=== PATIENT | female | born 1965 | race Caucasian/White ===

== ENCOUNTER 2017-09-15 12:33 | Emergency (ER) | payer SELFPAY ==
[~2017-09-15] VITALS: Ht 162.6 cm; Wt 55.9 kg
[2017-09-15 12:34] VITALS: BP 141/96
--- NOTE | 2017-09-15 12:41 | NUR ---
PT TRIAGED, AMBULATED TO ER LOBBY WAITING FOR ER BED. ERMD AWARE OF PATIENT STATUS.
--- NOTE | 2017-09-15 14:40 | NUR ---
PT TRIAGED, WAITING FOR ER BED. ERMD AWARE OF PATIENT STATUS.
--- NOTE | 2017-09-15 16:40 | NUR ---
PT TRIAGED,AAOx4, WAITING FOR ER BED. ERMD AWARE OF PATIENT STATUS.
--- NOTE | 2017-09-15 17:23 | NUR ---
PATIENT LEFT WITHOUT BEING SEEN BY DR. MULLER. NO FURTHER CARE PROVIDED FOR PATIENT.
== END 2017-09-15 17:22 | disposition left against medical advice (07) ==
LOC: MED 12:33
DX: M79.652 Pain in left thigh (principal); Z53.21 Procedure and treatment not carried out due to patient leaving prior to being seen by health care provider

== ENCOUNTER 2019-08-07 14:16 | Emergency (ER) | payer OTHER ==
[~2019-08-07] VITALS: Ht 162.6 cm; Wt 51.7 kg
[2019-08-07 14:47] VITALS: BP 162/87
[2019-08-07 16:55] VITALS: BP 151/76
== END 2019-08-07 16:55 | disposition home or self-care (01) ==
LOC: MED 14:16
DX: M25.562 Pain in left knee (principal); M25.462 Effusion, left knee; I10 Essential (primary) hypertension; Z98.890 Other specified postprocedural states
CPT/HCPCS: 73562; 99283

== ENCOUNTER 2019-08-15 09:13 | Emergency (ER) | payer OTHER ==
[~2019-08-15] VITALS: Ht 165.1 cm; Wt 54.4 kg
[2019-08-15 09:20] VITALS: BP 168/105
--- NOTE | 2019-08-15 09:25 | NUR ---
PT TAKEN TO ER BED 06
--- NOTE | 2019-08-15 09:32 | NUR ---
WANTS WORK NOTE FOR CLEARANCE TO RETURN TO WORK TODAY. SEEN LAST TUESDAY 08/07 IN ED FOR KNEE/FOOT PAIN, GIVEN CLEARANCE TO RETURN ON SUNDAY 08/12. PATIENT STATES PAIN OF 1/10 AT THIS TIME; VSS; PATIENT POSITIONED FOR COMFORT; HOB ELEVATED; BEDRAILS UP X1; BED DOWN. ER MD MADE AWARE OF PT STATUS.
--- NOTE | 2019-08-15 09:55 | NUR ---
AWARE OF BP. TANI FREDERICK D/C.
[2019-08-15 09:56] VITALS: BP 168/105
--- NOTE | 2019-08-15 09:56 | NUR ---
Patient discharged with v/s stable. Written and verbal after care instructions given and explained. Patient verbalized understanding. Ambulatory with steady gait. All questions addressed prior to discharge. Advised to follow up with PMD. WORK NOTE GIVEN.
== END 2019-08-15 09:56 | disposition home or self-care (01) ==
LOC: MED 09:13
DX: M25.562 Pain in left knee (principal); I10 Essential (primary) hypertension; Z02.89 Encounter for other administrative examinations
CPT/HCPCS: 99281

== ENCOUNTER 2019-09-22 10:43 | Emergency (ER) | payer OTHER ==
[~2019-09-22] VITALS: Ht 162.6 cm; Wt 54.0 kg
[2019-09-22 10:52] VITALS: BP 168/101
--- NOTE | 2019-09-22 14:00 | NUR ---
Patient ambulated to bed 10. RN evaluating patient at bedside.
--- NOTE | 2019-09-22 14:10 | NUR ---
54 yf bib self c/o left eye appeared red last week during md appt---rx antihistamine gtts pain worsen yesterday, redness increased, and tears more hx--htn rx--non compliant
--- NOTE | 2019-09-22 14:30 | NUR ---
visual acuity L: 20/30, R 20/40, Both: 20/30
[2019-09-22 14:49] VITALS: BP 144/94
--- NOTE | 2019-09-22 14:49 | NUR ---
Patient discharged with v/s stable. Written and verbal after care instructions given and explained. Patient alert, oriented and verbalized understanding of instructions. Ambulatory with steady gait. All questions addressed prior to discharge. ID band removed. Patient advised to follow up with PMD. Rx of Erythromycin, Ibuprofen, Clindamycin given. Patient educated on indication of medication including possible reaction and side effects. Opportunity to ask questions provided and answered.
== END 2019-09-22 14:49 | disposition home or self-care (01) ==
LOC: MED 10:43
DX: H04.302 Unspecified dacryocystitis of left lacrimal passage (principal); H10.89 Other conjunctivitis; B96.89 Other specified bacterial agents as the cause of diseases classified elsewhere; I10 Essential (primary) hypertension; Z98.890 Other specified postprocedural states
CPT/HCPCS: 99283

== ENCOUNTER 2019-10-31 12:12 | Emergency (ER) | payer OTHER ==
[~2019-10-31] VITALS: Ht 162.6 cm; Wt 53.1 kg
[2019-10-31 12:16] VITALS: BP 179/100
--- NOTE | 2019-10-31 12:24 | NUR ---
AMB TO BED 12 STEADY GAIT WITH CANE
--- NOTE | 2019-10-31 12:32 | NUR ---
54 y/o F presents to ER c/o right foot pain and right knee pain. Per pt her roomates puppy came running up to her and knocked her down. Denies hitting head. Denies LOC. Denies N/V. Bruising noted to right knee. Mild swelling and bruising noted to right foot. Pain level 5/10, throbbing. Pt took Tylenol 500mg at 9am with mild relief. HOB elevated, bed in lowest position, bed rail up x1. Waiting for ERMD to evaluate pt. Allergies: NKA Med hx: HTN
--- NOTE | 2019-10-31 12:37 | NUR ---
Xray at bedside
--- NOTE | 2019-10-31 13:13 | NUR ---
ermd at bedside pt resting in bed, side rail x1
[2019-10-31] MEDS ORDERED: ACETAMINOPHEN 325 MG TAB PO ONE (13:15)
[2019-10-31 14:05] VITALS: BP 157/78
--- NOTE | 2019-10-31 14:05 | NUR ---
Patient discharged with v/s stable. Written and verbal after care instructions given and explained. Patient alert, oriented and verbalized understanding of instructions. Ambulatory with steady gait. All questions addressed prior to discharge. ID band removed. Patient advised to follow up with PMD. Rx of Tylenol was given given. Patient educated on indication of medication including possible reaction and side effects. Opportunity to ask questions provided and answered.
== END 2019-10-31 14:05 | disposition home or self-care (01) ==
LOC: MED 12:12
DX: S93.401A Sprain of unspecified ligament of right ankle, initial encounter (principal); I10 Essential (primary) hypertension; W54.1XXA Struck by dog, initial encounter; Y93.89 Activity, other specified; Y92.89 Other specified places as the place of occurrence of the external cause; Y99.8 Other external cause status
CPT/HCPCS: 73610; 73630; 99284; Q0092

== ENCOUNTER 2022-07-05 12:11 | Emergency (ER) | payer OTHER ==
[~2022-07-05] VITALS: Ht 154.9 cm; Wt 52.2 kg
[2022-07-05 12:17] VITALS: BP 203/115
--- NOTE | 2022-07-05 12:20 | NUR ---
PT AMBULATED TO ER BED 4
--- NOTE | 2022-07-05 12:25 | NUR ---
57/F WALKED IN C/O CHEST PAIN ONSET YESTERDAY. DESCRIBES PAIN STABBING. PT DENIES ANY PAIN OR DISCOMFORT AT THIS TIME. DENIES SOB. VITALS STABLE EKG DONE. PMH: HTN
[2022-07-05 13:13] VITALS: BP 187/88
--- NOTE | 2022-07-05 13:23 | NUR ---
XR AT BEDSIDE
[2022-07-05 13:42] LABS: BASOPHILS # (AUTO) 0.1 K/uL (0.00-0.22); BASOPHILS % (AUTO) 1.2 % (0.0-2.0); EOSINOPHILS # (AUTO) 0.1 K/uL (0-0.4); EOSINOPHILS % (AUTO) 1.3 % (0.0-4.0); HEMATOCRIT 36.6 % (36-48); HEMOGLOBIN 12.7 g/dL (12.0-16.0); LYMPHOCYTES # (AUTO) 1.3 K/uL (2.5-16.5); LYMPHOCYTES % (AUTO) 26.1 % (20.5-51.1); MEAN CORPUSCULAR HEMOGLOBIN 33 pg (27-31); MEAN CORPUSCULAR HGB CONC 35 g/dL (33-37); MEAN CORPUSCULAR VOLUME 93.6 fL (80-94); MONOCYTES % (AUTO) 19.2 % (1.7-9.3); NEUTROPHILS # (AUTO) 2.7 K/uL (1.8-7.7); NEUTROPHILS % (AUTO) 52.2 % (42.2-75.2); PLATELET COUNT (AUTO) 258 K/uL (140-450); RED BLOOD CELL COUNT(AUTO) 3.91 MIL/uL (4.20-5.40); RED CELL DISTRIBUTION WIDTH 13.2 % (11.6-13.7); WHITE BLOOD COUNT (AUTO) 5.1 K/uL (4.8-10.8)
[2022-07-05 13:49] LABS: ALBUMIN 3.8 g/dL (3.4-5.0); ANION GAP 18.6 (8-16); CREATININE 0.6 mg/dL (0.6-1.3); POTASSIUM 4.6 mmol/L (3.5-5.1); TOTAL BILIRUBIN 0.5 mg/dL (0.0-1.0)
--- NOTE | 2022-07-05 15:10 | NUR ---
Patient discharged with v/s stable. Written and verbal after care instructions given and explained. Patient verbalized understanding. Ambulatory with steady gait. All questions addressed prior to discharge. Advised to follow up with PMD.
== END 2022-07-05 15:10 | disposition home or self-care (01) ==
LOC: MED 12:11
DX: R07.9 Chest pain, unspecified (principal); I10 Essential (primary) hypertension; F12.90 Cannabis use, unspecified, uncomplicated; Z79.899 Other long term (current) drug therapy; Z98.890 Other specified postprocedural states
CPT/HCPCS: 36415; 71045; 80053; 83880; 84484; 85025; 93005; 99285

== ENCOUNTER 2024-04-14 12:54 | Emergency (ER) | payer OTHER ==
[~2024-04-14] VITALS: Ht 162.6 cm; Wt 56.7 kg
[2024-04-14 13:18] VITALS: BP 125/77; PULSE 127; RESP 16; TEMP 98.5; O2SAT 97
[2024-04-14] MEDS: KETOROLAC 30 MG/ML VIAL IM ONE (13:56)
[2024-04-14] MEDS ORDERED: IBUP-2213 PO (15:45)
== END 2024-04-14 16:54 | disposition home or self-care (01) ==
LOC: MED 12:54
DX: S52.615A Nondisplaced fracture of left ulna styloid process, initial encounter for closed fracture (principal); I10 Essential (primary) hypertension; Z79.899 Other long term (current) drug therapy; W01.0XXA Fall on same level from slipping, tripping and stumbling without subsequent striking against object, initial encounter; Y92.89 Other specified places as the place of occurrence of the external cause; Y93.89 Activity, other specified; Y99.8 Other external cause status
CPT/HCPCS: 29125; 73110; 73130; 96372; 99284; J1885